=== PATIENT | male | born 1995 | race Asian ===

== ENCOUNTER 2016-11-12 18:09 | Emergency (ER) | payer OTHER ==
[~2016-11-12] VITALS: Ht 172.7 cm; Wt 60.0 kg
[2016-11-12 18:33] VITALS: Ht 172.7 cm; Wt 60.0 kg
--- NOTE | 2016-11-12 19:12 | DIAGNOSTIC IMAGING REPORT ---
RIGHT KNEE 3 VIEWS HISTORY: R anterior knee pain Right COMPARISON: None. FINDINGS: There is no fracture or dislocation. Soft tissues are unremarkable. No radiopaque foreign bodies. No knee effusion. IMPRESSION: No fractures. Electronically signed by: Casey Yi M.D. 11/12/2016 7:11 PM Dictated Date/Time: 11/12/2016 7:10 PM
[2016-11-12 19:34] VITALS: BP 122/76; PULSE 78; TEMP 37.2; O2SAT 97
--- NOTE | 2016-11-12 22:58 | EMERGENCY ROOM VISIT NOTE ---
History First contact with patient: 18:38 Chief Complaint: KNEEPAIN Stated Complaint: SHARP PAIN IN RT KNEE, HARD TO WALK ON IT History of Present Illness The patient is a 21 year old male who presents to the Emergency Room with complaints of right anterior knee pain. The patient reports that he did have some discomfort prior to spring. Over spring, he had no significant pain. The patient was walking down steps approximately 2 hours prior to arrival, and felt a sharp pain in his knee. He did not fall or twist the knee. He now rates his discomfort a 7 out of 10 with weightbearing, and denies any pain with nonweightbearing. The patient denies any prior history of injuries to the right knee. He currently denies any pain extending into the leg , thigh or back. Denies paresthesias or numbness of the right lower extremity. Review of Systems 10 system review was performed and was negative except for pertinent positives and negatives as indicated in history of present illness Past Medical/Surgical History Medical Problems: (1) No significant past medical history Surgical Problems: (1) No history of previous surgery Family History Unremarkable Social History Smoking Status: Never Smoker Alcohol Use: none Marital Status: single Occupation Status: [employer] student Current/Historical Medications No Active Prescriptions or Reported Meds Allergies Coded Allergies: No Known Allergies (Unverified , 11/12/16) Physical Exam Vital Signs Date Time Temp Pulse Resp B/P Pulse Ox O2 Delivery O2 Flow Rate FiO2 11/12/16 19:34 37.2 78 18 122/76 97 11/12/16 18:33 37.2 78 18 122/76 97 Room Air Physical Exam CONSTITUTIONAL: Healthy and well nourished. Alert and oriented X 3 with positive affect. Patient does not appear in any acute distress. HEENT: Normocephalic, atraumatic. Pupils equal, round and reactive. NECK: Full active range of motion without discomfort. MUSCULOSKELETAL: Examination of the right knee does not show any soft tissue edema, erythema, ecchymosis or wounds. No joint effusion appreciated. The patient has full active flexion and extension without discomfort. No tenderness to palpation through the joint lines, hamstrings, quadriceps/ patellar tendons or peripatellar region. Negative patellar grind test. Negative anterior draw, negative posterior drawer, negative pivot shift. Collateral ligaments are intact. Pedal pulses are intact. INTEGUMENTARY: No rash or other significant dermatologic conditions noted. NEUROLOGIC: Right leg, foot and toes are sensory intact. Medical Decision & Procedures ER Provider Diagnostic Interpretation: My interpretation of right knee x-rays does not show any suspicious bony lesions , fractures or dislocations. Radiologist report is as follows: RIGHT KNEE 3 VIEWS HISTORY: R anterior knee pain Right COMPARISON: None. FINDINGS: There is no fracture or dislocation. Soft tissues are unremarkable. No radiopaque foreign bodies. No knee effusion. IMPRESSION: No fractures. ED Course Patient history and physical exam were performed. Nurse's notes were reviewed. The patient refused any analgesics, reporting that he is currently pain-free while sitting on the bed. X-rays of the right knee were normal. The patient was dispensed crutches, and instructed to remain weightbearing as tolerated. He was encouraged to intermittently apply ice to the knee. Ibuprofen and/or Tylenol as needed for additional pain relief. Patient was encouraged to follow- up with an orthopedic surgeon if symptoms do not improve within the next week. The patient was happy with plan of care, voiced understanding of all discharge instructions, and denied any pain at the time of discharge. Impression Primary Impression: Right anterior knee pain Departure Information Prescriptions No Active Prescriptions or Reported Meds Referrals No Doctor, Assigned (PCP) Patient Instructions [facility]
== END 2016-11-12 19:35 | disposition home or self-care (01) ==
LOC: C.EDB 18:12 → C.EDD 19:35
DX: M25.561 Pain in right knee (principal)